=== PATIENT | female | born 1990 | race Caucasian/White ===

== ENCOUNTER 2023-10-05 18:01 | Emergency (ER) | payer OTHER, SELFPAY ==
[2023-10-05 18:19] VITALS: BP 93/65; PULSE 74; RESP 16; TEMP 37.2; O2SAT 99
--- NOTE | 2023-10-05 18:24 | ED.FEMALEGU ---
HPI - Female Genitourinary General Chief complaint: Urogenital-Female Stated complaint: urinary issue Time Seen by Provider: 10/05/23 18:25 Source: patient, RN notes reviewed and old records reviewed Mode of arrival: ambulatory Limitations: no limitations History of Present Illness HPI Narrative: 33-year-old female presents to the [facility] with urgency, burning, frequency and low abdominal pressure that started this morning. States that she did take 2 Tylenol this morning. Patient denies any fevers, significant abdominal pain. States that she felt nauseated but no vomiting Last menstrual period was 1 week go Related Data Allergies Allergy/AdvReac Type Severity Reaction Status Date / Time No Known Allergies Allergy Verified 10/05/23 18:10 Review of Systems Review of Systems: All systems reviewed & are unremarkable except as noted in HPI and below Constitutional: Constitutional: Reports no additional constitutional complaints Eyes: Eyes: Reports no additional eye complaints ENT: Reports system reviewed and no additional complaints, except as documented Cardiovascular: Cardiovascular: Reports no additional cardiovascular complaints, Denies chest pain and Denies dyspnea Respiratory: Respiratory: Reports no additional respiratory complaints, Denies chest congestion, Denies cough and Denies dyspnea Gastrointestinal: Gastrointestinal: Reports no additional gastrointestinal complaints, Denies abdominal pain, Denies nausea and Denies vomiting Genitourinary: Genitourinary: Reports as per HPI and Reports dysuria Musculoskeletal: Musculoskeletal: Reports no additional musculoskeletal complaints Integumentary/Breasts: Skin/Breast: Reports system reviewed and no additional complaints, except as docu Neurologic: Reports system reviewed and no additional complaints, except as documented Psychiatric: Psychiatric: Reports no additional psychiatric complaints Allergic/Immunologic: Allergic/Immunologic: Reports no additional allergic/immunologic complaints PMFSH Past Medical History Medical History (Updated 10/05/23 @ 18:32 by Apoorva Avitia APRN) Patient denies medical problems Comments At the time of my signature, I reviewed and agree with the nursing past medical, surgical, social, and family history. There is no relevant family history pertinent to the patient complaint. Exam Const: General: cooperative, healthy appearing, comfortable, no acute distress, well developed, alert and well nourished Nutritional Appearance: well nourished Orientation/consciousness: patient oriented x3 Limitations: no limitations HENMT: Head: normal to inspection Ears: hearing grossly normal bilaterally and external ears normal Face/Nose/Sinus: Normal external nose present, Normal nares present, Normal nasal mucous membranes and turbinates present, normal facial exam and face symmetric Face and sinus: normal facial exam and face symmetric Eyes: General: appearance normal, both eyes and all related structures Alignment and Position: alignment normal Periorbital: periorbital findings normal Pupils: Equal, round and reactive pupils present EOM: EOMs intact bilaterally Neck: Neck: normal visual inspection, full ROM, no lymphadenopathy and no meningeal signs Chest: Chest palpation & inspection: normal inspection of the chest Resp: Effort & Inspection: normal respiratory effort and able to speak in complete sentences Auscultation: clear to auscultation bilaterally, no crackles, no rales, no rhonchi and no wheezes Cardio: Rate: regular rate Rhythm: regular rhythm GI: GI Palp: No abdominal tenderness : General: Yes no CVA tenderness Skin: General skin exam: normal color and no rashes or lesions noted Lesions: no lesions Rashes: no rashes Trauma: no lacerations or abrasions Wounds: no wounds Neuro: General: patient oriented x3, gait normal, tone normal, moves all extremities and no meningeal signs Cranial nerves: Yes Equal, round a
== END 2023-10-05 18:35 | disposition home or self-care (01) ==
PROVIDERS: Emergency Provider Nurse Practitioner
DX: N30.01 Acute cystitis with hematuria (principal)
CPT/HCPCS: 81003; 87086; 87088; 99213; G0463

== ENCOUNTER 2024-08-07 08:47 | Emergency (ER) | payer OTHER, SELFPAY ==
[2024-08-07 08:58] VITALS: BP 101/66; PULSE 64; RESP 19; TEMP 36.7; O2SAT 100
--- NOTE | 2024-08-07 09:09 | ECG_ITS ---
Test Date: 2024-08-07 09:22:16 Measurements Intervals [place] Rate: 68 P: 47 [place]: 152 QRS: 75 QRSD: 78 T: 44 QT: 383 QTc: 407 Interpretive Statements SINUS RHYTHM No previous ECG available for comparison Electronically Signed On 08-08-2024 15:28:51 CDT by Pelon Irizarry M.D.
--- NOTE | 2024-08-07 09:10 | ED.BACK ---
HPI - Back Pain/Injury General Chief Complaint: Back Pain/Injury Stated Complaint: Back Pain/Acid Reflex Time Seen by Provider: 08/07/24 09:01 Source: patient and RN notes reviewed Mode of arrival: ambulatory Limitations: no limitations History of Present Illness HPI Narrative: Patient presents today complaining sternal chest discomfort, belching. The chest discomfort radiates to the right mid back. Symptoms began last night and have persisted to this morning. Currently rates her pain 7/10. Denies nausea or vomiting, shortness of breath. States she has had symptoms such as these in the past and has been evaluated in the emergency department. It was determined she had acid reflux and she was treated with a GI cocktail. She has not tried any [id number] interventions prior to arrival. She did intake a lot of citrus yesterday. Related Data Home Medications ?Medication ?Instructions ?Recorded ?Confirmed ?Last Taken ?Type No Home Medications 08/07/24 Unknown History Allergies Allergy/AdvReac Type Severity Reaction Status Date / Time No Known Allergies Allergy Verified 08/07/24 08:51 Review of Systems Review of Systems: CONSTITUTIONAL: Denies body aches, fever, chills, or sweats. EYES: Denies visual changes, redness, or discharge. ENT: Denies rhinorrhea, congestion, sore throat, or otalgia. CARDIOVASCULAR: Denies palpitations, or edema.+ chest pain RESPIRATORY: Denies cough or dyspnea. GASTROINTESTINAL: Denies abdominal pain, nausea, vomiting, or diarrhea.+ belching GENITOURINARY: Denies dysuria or hematuria. SKIN: Denies rash, itching, or wounds. MUSCULOSKELETAL: Denies joint pain, or myalgia.+ back pain NEUROLOGIC: Denies headache, numbness, tingling, or weakness. PSYCH: Denies depression or anxiety. [facility] Past Medical History Medical History Patient denies medical problems Comments At time of signature, I have reviewed and agree with nursing past medical, surgical, social and family history unless otherwise noted. Please see nursing chart for further information. There is no relevant family history pertinent to the presenting complaint Exam Narrative: GENERAL: Well-appearing, well-nourished, and in no acute distress. HEAD: Normocephalic, atraumatic. EYES: EOMI. No redness or drainage. Conjunctivae normal. ENT: Mucous membranes pink and moist. NECK: Normal AROM. CHEST: No respiratory distress. Clear to auscultation. HEART: Regular rate and rhythm. No murmur appreciated. ABDOMEN: Soft, nontender, nondistended, normal active bowel sounds. MUSCULOSKELETAL: No bony tenderness of the spine. SKIN: Warm, dry, no rash. Capillary refill normal. Normal skin turgor. NEURO: No focal deficits. Alert and oriented x3. Gait steady. PSYCH: Normal affect. No signs of depression or anxiety. Course Course Emergency Course: 936- GI cocktail of viscous lidocaine and Mylanta administered. 950-patient states she is feeling, ?a lot better. ? Discussed starting either Pepcid or omeprazole at home to help with her GERD/acid. Also discussed dietary modifications at length. Level of Care: Express Care Visit Vital Signs Vital signs: Vital Signs Temperature 98.1 F 08/07/24 08:58 Pulse Rate 64 08/07/24 08:58 Respiratory Rate 19 08/07/24 08:58 Blood Pressure 101/66 08/07/24 08:58 Pulse Oximetry 100 08/07/24 08:58 Oxygen Delivery Room Air 08/07/24 08:58 Temperature 98.1 F 08/07/24 08:58 Pulse Rate 64 08/07/24 08:58 Respiratory Rate 19 08/07/24 08:58 Blood Pressure 101/66 08/07/24 08:58 Pulse Oximetry 100 08/07/24 08:58 Oxygen Delivery Room Air 08/07/24 08:58 Reviewed MDM - Back Pain/Injury MDM Narrative Medical decision making narrative: EKG sinus rhythm with possible right ventricular conduction delay. Discussed results with patient. Will provide copy for when she follows up with PCP. She is feeling much better after GI cocktail. Discussed starting GERD medications such as Pepcid or omeprazole, at least for the next week to calm down acid in the stomach. Also discussed dietary modifications as well as sitting upright after eating, using an extra pillow for sleep etc.. Patient agrees with plan. Anticipatory guidance given. Differential Diagnosis Differential diagnosis: Likely thoracic back pain and other (GERD, gastritis, [place]) ECG Data EKG #1: Attestation: I personally reviewed and interpreted this ECG as follows: ECG completion date: 08/07/24 ECG completion time: 09:22 Prior ECG tracings: not available for review Interpretation: Sinus rhythm. Possible right ventricular conduction delay. No ST segment abnormalities noted. Critical Care Time Critical Care Time Critical Care Time: No Discharge Plan Discharge Clinical Impression: GERD (gastroesophageal reflux disease) Qualifiers: Esophagitis presence: esophagitis presence not specified Qualified Code(s): K21.9 - Gastro-esophageal reflux disease without esophagitis Patient Disposition: Home, Self-Care Condition: Improved Instructions: Diet for Stomach Ulcers and Gastritis (ED), GERD (Gastroesophageal Reflux Disease) (DC) Additional Instructions: Your symptoms are likely due to increased acid in your stomach with reflux. Please start an acid medications such as Pepcid (famotidine) at 20 mg once daily for at least the next week or omeprazole 20 mg once daily for at least the next week. As discussed, please decrease the your rotating foods such as citrus, caffeine, fried or spicy foods. Sit upright for at least 2 hours after eating before going to bed or lying down. Please follow-up with your PCP in 1 week if symptoms persist, sooner if symptoms worsen. Patient Language: Maldivian Prescriptions: No Action No Home Medications Follow-up/Referrals: PHYSICIAN,DEVELOPMENTAL SERVICES WORKER [Primary Care Provider] - Time of Disposition: 09:57
[2024-08-07] MEDS: MAG HYDROX/AL HYDROX/SIMETH 30 ML UDC PO (09:34)
[2024-08-07] MEDS: LIDOCAINE 2% VISC SOLN 15 ML UDC 10 ML PO (09:34)
== END 2024-08-07 10:00 | disposition home or self-care (01) ==
PROVIDERS: Emergency Provider Nurse Practitioner
DX: K21.9 Gastro-esophageal reflux disease without esophagitis (principal)
CPT/HCPCS: 93005; 99213; A9270; G0463

== ENCOUNTER 2025-02-05 10:23 | Emergency (ER) | payer OTHER, SELFPAY ==
[2025-02-05 10:33] VITALS: BP 88/69; PULSE 80; RESP 16; TEMP 36.5; O2SAT 98
[2025-02-05 10:46] VITALS: BP 90/58
--- NOTE | 2025-02-05 11:25 | ED_ITS ---
HPI - URI/Sore Throat General Chief Complaint: Upper Respiratory Infection Stated Complaint: lingering cough 3wks Time Seen by Provider: 02/05/25 11:25 Source: patient, RN notes reviewed and old records reviewed Mode of arrival: ambulatory Limitations: no limitations History of Present Illness HPI Narrative: 34-year-old female presents to the [facility] with complaints of a lingering cough for 3 weeks. States that she has used her daughter's albuterol. Has taken DayQuil. Has an appointment with her primary care provider on the 22 of February. Patient denies any upper respiratory in symptoms. Denies any shortness of breath, chest pain. Onset (ago): week(s) (3) Treatments prior to arrival: cold medicine Related Data Home Medications ?Medication ?Instructions ?Recorded ?Confirmed ?Last Taken ?Type famotidine 20 mg tablet mg 02/05/25 Unknown History Allergies Allergy/AdvReac Type Severity Reaction Status Date / Time No Known Allergies Allergy Verified 02/05/25 10:45 Review of Systems Review of Systems: All systems reviewed & are unremarkable except as noted in HPI and below Constitutional: Constitutional: Reports no additional constitutional complaints ENT: Reports system reviewed and no additional complaints, except as documented Cardiovascular: Cardiovascular: Reports no additional cardiovascular complaints, Denies chest pain and Denies dyspnea Respiratory: Respiratory: Reports as per HPI, Denies chest congestion, Reports cough and Denies dyspnea Musculoskeletal: Musculoskeletal: Reports no additional musculoskeletal complaints Integumentary/Breasts: Skin/Breast: Reports system reviewed and no additional complaints, except as docu PMFSH Past Medical History Medical History Patient denies medical problems Surgical History Surgical History Hx of tubal ligation Social History Social History Smoking status: Never smoker Gender identity (if verbalized by the patient): Female Comments At the time of my signature, I reviewed and agree with the nursing past medical, surgical, social, and family history. There is no relevant family history pertinent to the patient complaint. Exam Const: General: cooperative, healthy appearing, comfortable, no acute distress, well developed, alert and well nourished Nutritional Appearance: well nourished Orientation/consciousness: patient oriented x3 Limitations: no limitations HENMT: Head: normal to inspection Ears: hearing grossly normal bilaterally, external ears normal, TM's normal bilaterally, EAC's normal, mastoids normal and no periauricular adenopathy Mouth: Yes Normal oral and palatal mucosa present, Yes lip normal, Yes tongue normal and Yes moist mucous membranes Throat: uvula midline, postnasal drainage and no uvular edema Eyes: General: appearance normal, both eyes and all related structures Alignment and Position: alignment normal Neck: Neck: normal visual inspection, full ROM, no lymphadenopathy and no meningeal signs Chest: Chest palpation & inspection: normal inspection of the chest Resp: Effort & Inspection: normal respiratory effort and able to speak in complete sentences Auscultation: clear to auscultation bilaterally, no crackles, no rales, no rhonchi and no wheezes Cardio: Rate: regular rate Skin: General skin exam: normal color and no rashes or lesions noted Neuro: General: patient oriented x3, gait normal, moves all extremities and no meningeal signs Cognition (Neuro): normal cognition Speech: normal speech Gait exam (Neuro): Normal gait present Extrem: General: normal to inspection, full ROM, capillary refill normal and normal gait Psych: Appearance: grossly normal and well kempt Mental Status: mental status grossly normal Speech and movement: Normal speech and movement present and Clear speech present Affect: normal affect Attitude: cooperative Course Course Level of Care: Express Care Visit Vital Signs Vital signs: Vital Signs Temperature 97.7 F 02/05/25 10:33 Pulse Rate 80 02/05/25 10:33 Respiratory Rate 16 02/05/25 10:33 Blood Pressure 88/69 L 02/05/25 10:33 Pulse Oximetry 98 02/05/25 10:33 Oxygen Delivery Room Air 02/05/25 10:33 Temperature 97.7 F 02/05/25 10:33 Pulse Rate 80 02/05/25 10:33 Respiratory Rate 16 02/05/25 10:33 Blood Pressure 90/58 L 02/05/25 10:46 Pulse Oximetry 98 02/05/25 10:33 Oxygen Delivery Room Air 02/05/25 10:33 Reviewed MDM - URI/Sore Throat MDM Narrative Medical decision making narrative: Patient sitting in exam room. Patient is nontoxic, vitals stable. Patient presents for a 3 week of cough. Postnasal drainage noted. No other acute findings noted on exam. No coughing on exam. No rhonchi, wheezing. Discussed not using someone else's medication. Discussed [id number] treatment plan, patient verbalized understanding Discharge instructions reviewed with patient, as well as provided in writing per nursing staff. The instructions also include specific and strict return/GO TO THE ER as well as f/u information. All questions have been answered, and the patient deny any further questions with discharge and discharge plan. Some parts of this dictation were generated by voice recognition software and may contain typographical and/or grammatical inaccuracies. Differential Diagnosis Differential diagnosis: Likely upper respiratory infection, otitis media, sinusitis, viral infection, bronchitis and pharyngitis Critical Care Time Critical Care Time Critical Care Time: No Discharge Plan Discharge Clinical Impression: PND (post-nasal drip), Bronchitis Patient Disposition: Home Condition: Stable Instructions: Antibiotic Form, Acute Bronchitis (ED), Postnasal Drip (DC) Additional Instructions: It is very important to treat your symptoms. Drink plenty of water, Gatorade, Pedialyte, ice pops or Jell-O. -Alternate Tylenol and Motrin per package directions for fever or pain. You can alternate every 4 hours -Antihistamine medication such as Zyrtec/Claritin/Linda during the day can help improve symptoms. -doing daily nasal irrigations can help relieve pressure your sinuses. Things like a Neti pot -Use Flonase twice a day for 5 days then daily to help reduce the inflammation and dry up your sinuses. -You can also use Mucinex. Be sure to drink plenty of water with this medication at least 8 ounces with every dose and it is important to drink 8 to 10 glasses of water per day. Water is a natural decongestant -Eat and drink things that are easy to swallow, like tea or soup, or popsicles. -Oral rinses such as: Salt water gargles and/or may use topical anesthetic (eg. Chloraseptic spray) or lozenges to relieve dryness or throat pain). -Frequent hand washing or hand stonecutter assistant is one of the best ways to prevent spread of infection. -Using a vaporizer or humidifier at night will also help thin secretions and help with coughing up phlegm. -Follow up with primary care provider in 7-10 days if condition is not improving - For new or worsening symptoms go directly to the nearest ER Patient Language: [place] Prescriptions: New prednisone 20 mg tablet See Rx Instructions .Route .COMPLEX Qty: 9 0RF Rx Instructions: Take 40 mg daily for 3 days, 20 mg daily for 3 days doxycycline monohydrate 100 mg tablet 100 mg PO BID Qty: 14 0RF No Action famotidine 20 mg tablet Follow-up/Referrals: UNKNOWN,DOCTOR [Primary Care Provider] Stand Alone Forms: Work/School Release IP Time of Disposition: 11:37
== END 2025-02-05 11:42 | disposition home or self-care (01) ==
PROVIDERS: Emergency Provider Nurse Practitioner
DX: R09.82 Postnasal drip (principal); J40 Bronchitis, not specified as acute or chronic
CPT/HCPCS: 99213; G0463